=== PATIENT | male | born 1975 | race Caucasian/White ===

== ENCOUNTER 2021-09-09 16:46 | Emergency (ER) | payer BC ==
[2021-09-09 18:35] LABS: RED BLOOD COUNT 4.96 M/UL (4.20-5.50); WHITE BLOOD COUNT 6.2 K/UL (4.5-11.0)
[2021-09-09 19:06] LABS: BUN/CREATININE RATIO 14 (0-10)
== END 2021-09-09 20:25 | disposition home or self-care (01) ==
LOC: ER1 16:46
PROVIDERS: Physician Assistant
DX: R07.89 Other chest pain (principal); Z86.16 Personal history of COVID-19; Z88.0 Allergy status to penicillin; Z87.891 Personal history of nicotine dependence
CPT/HCPCS: 71045; 80053; 82550; 82553; 84484; 85025; 99285